=== PATIENT | male | born 1955 | race Caucasian/White ===

== ENCOUNTER 2023-07-28 17:25 | Day surgery (SDC) | payer MEDICARE, SELFPAY ==
[2023-07-28 15:29] VITALS: BP 154/81
--- NOTE | 2023-07-28 15:58 | ED.GENMED ---
History of Present Illness
General
Chief Complaint: Foreign Body Ingestion
Source: patient and spouse
Exam Limitations: none
Time Seen by Provider: 07/28/23 15:41
Nursing documentation reviewed up to this point in time: agreed with
Travel History
Have you had any contact with someone who has COVID-19?: No
Do you have any symptoms of coronavirus? Fever > 100 degrees, chills, cough, shortness of breath, sore throat, loss of taste or smell, muscle aches, or headache?: No
History of Present Illness
History of Present Illness:
68-year-old male with past medical history as documented presents for evaluation with concern for possible swallowed foreign body. Patient had his front tooth extracted and is planning to have an implant soon. He had a temporary tooth that clips
to the adjacent teeth as a placeholder. He says that he put it on this afternoon before lunch and then after lunch he realized that it was no longer in his mouth. He says that he looked all over but could not find it anywhere and he is concerned
that he swallowed it while he was eating lunch. Came to the emergency room for assessment. He has no complaints�no odynophagia/dysphagia, nausea, vomiting, abdominal pain, chest pain or any other issues. He says he did not have any coughing or
breathing difficulties to suggest aspiration.
Past History
Past History
ED Past Medical History: HTN, Hypercholesterolemia, NIDDM and Other (Seasonal allergies, fatty liver with mildly elevated LFTs.)
ED Past Surgical History: Appendectomy and Cholecystectomy
Social History
Tobacco: Non-smoker
Alcohol: Occasional
Drug: None
Personal:
Living: with family
Employment: Employed
Family History
Family History: Other (Noncontributory)
Review of Systems
Review of Systems
All Other Systems: ROS reviewed and negative except as documented in HPI and ROS
EENT: Reports other (Denies odynophagia or dysphagia)
Respiratory: Denies cough or trouble breathing
Cardiac: Denies chest pain
ABD/GI: Denies abdominal pain, nausea or vomiting
Phy Exam
Physical Exam
Physical Exam:
General: Awake, alert, oriented x3; no acute distress
Head: Normocephalic, atraumatic
Eyes: Conjunctiva normal
Throat: Airway intact, handling secretions, no foreign body noted in the upper airway
Neck: Trachea midline
Lungs: Clear to auscultation bilaterally, no wheezing, rales, rhonchi
Heart: Regular rate
Abd: Soft, non distended, nontender
Neuro: No gross deficits
Skin: no rash
Extremities: Moving all extremities equally
Scores
Heart Failure Risk
Heart Failure Risk Score: Not Applicable
Heart Score for Chest Pain Patients
STEMI patient?: Not applicable
Withdrawal Assessment of Alcohol
Withdrawal Assessment Completed?: Not applicable
Course
Orders/Labs/Results
Orders:
Orders
07/28/23 15:49
CR Obstruct Series W/pa Chest Urgent
Comment:
Reason For Exam: eval for swallowed FB
Vital Signs
Initial and Last Documented VS:
Initial Vital Signs
Temp Pulse Resp BP Pulse Ox
36.7 C 88 18 154/81 94
07/28/23 15:29 07/28/23 15:29 07/28/23 15:29 07/28/23 15:29 07/28/23 15:29
Last Documented Vital Signs
Temp Pulse Resp BP Pulse Ox
36.7 C 88 18 154/81 94
07/28/23 15:29 07/28/23 15:29 07/28/23 15:29 07/28/23 15:29 07/28/23 15:29
MDM/Problems Addressed
Differential Diagnosis Includes:
Swallowed foreign body
MDM/Problems Addressed:
68-year-old male with history as above presents for evaluation with concern for a swallowed foreign body. He had a temporary tooth in place awaiting implant�had it in before lunch and then after lunch noted it was no longer in his mouth believes he
may have swallowed it. This temporary tooth does have some clips on the side that adhered to the adjacent teeth�he says that the edges are not pointed but they do stick out slightly. He has no physical complaints at this point in time. Will check
x-ray of the chest and abdomen to evaluate location.
X-ray reviewed question whether there is a foreign body in the stomach and the epigastric region. Reviewed with patient and he says that the shape appears consistent with his temporary tooth. Discussed case with GI and after reviewing x-ray and
speak with patient ultimately will plan to take to GI lab for endoscopy.
*Radiology
Radiology exam reviewed: preliminary read by ED provider and radiology read reviewed
*Pulse Oximetry
Patient hypoxic: no
*Critical Care Note
Total Time (30-74mins, 75-104mins- exclusive of procedures): Not Applicable
Data Reviewed
Source: patient and spouse
Patient Management
Discussion with other providers: Resident Director (Discussed with gastroenterology)
ED Attending Note
-
Portions of this chart may have been created with voice recognition software.� Occasional wrong word or��sound alike� substitutions may have occurred due to the inherent limitations of voice recognition software.
Discharge Plan
Departure
Patient Disposition: GI LAB
Date of Disposition: 07/28/23
Time of Disposition: 17:09
Admit to doctor: Valdez
Presentation/result/management discussed w/ accepting MD/DO: GI
Discharge Problem:
Foreign body, swallowed
Prescriptions:
No Action
loratadine 10 MG tablet
10 mg PO DAILY
cholecalciferol (vitamin D3) 2,000 UNITS tablet
2,000 unit PO DAILY
atorvastatin 10 MG tablet
20 mg PO DAILY
losartan 25 MG tablet
50 mg PO DAILY
metformin 500 MG tablet extended release 24 hr
500 mg PO DAILY
ascorbic acid (vitamin C) [Vitamin C] 500 MG tablet
500 mg PO DAILY
aspirin 81 mg Tablet,Delayed Release (Dr/Ec)
81 mg PO DAILY
Multivitamin 50 Plus Tablet
1 tab PO DAILY
acetaminophen 325 MG tablet
650 mg PO Q4HPRN PRN (Reason: headache)
gabapentin 100 mg capsule
100 mg PO TID Qty: 90 0RF
Referrals:
Sarahi Lion MD [Family Provider] -
Interventions
Interventions:
*Risk Screen - Suicide Last Done: 07/28/23 15:29
*General Assessment Last Done: 07/28/23 15:29
KT-Olgwmu-Drpuarslvs Assessment Last Done: 07/28/23 16:58
ED- Pulmonary Assessment Last Done: 07/28/23 16:58
Discharge Date and Time
Print Language: LIBYAN
[2023-07-28 16:24] VITALS: BMI 43.5
[2023-07-28 18:28] VITALS: BP 110/63; BP 154/81
[2023-07-28 18:32] LABS: Glucose - Point of Care 104 mg/dl (70-99)
[2023-07-28 18:43] VITALS: BP 127/71
[2023-07-28 19:00] VITALS: BP 116/66
[2023-07-28 19:01] VITALS: BP 116/66
[2023-07-28 19:18] VITALS: BP 123/73
--- NOTE | 2023-07-28 19:26 | SUR.PHASEI ---
patient accepted for phase 2 - starting in pacu. comfortable, other than productive cough for thick clear mucous.
== END 2023-07-28 19:23 | disposition home or self-care (01) ==
LOC: GI 17:25
PROVIDERS: EMERGENCY PHYSICIAN Emergency Medicine; FAMILY PHYSICIAN Internal Medicine
DX: T18.2XXA Foreign body in stomach, initial encounter (principal); W44.9XXA Unspecified foreign body entering into or through a natural orifice, initial encounter; K20.90 Esophagitis, unspecified without bleeding; K31.89 Other diseases of stomach and duodenum
CPT/HCPCS: 43247; 74022; 82962; 99284

== ENCOUNTER → 2024-01-12 08:43 | Outpatient (REF) | payer MEDICARE, SELFPAY ==
[2024-01-12 11:30] LABS: Urine Albumin Negative (Neg - Trace); Urine Bilirubin Negative (Negative); Urine Character Clear (Clear); Urine Color Yellow; Urine Glucose Negative (Negative); Urine Ketone Negative (Negative); Urine Leukocyte Negative (Negative); Urine Nitrite Negative (Negative); Urine Occult Blood Negative (Negative); Urine Specific Gravity 1.025 (<1.030); Urine Urobilinogen Negative (Neg - 1+)
[2024-01-12 11:31] LABS: % Basophils 1.5 % (0-2); % Eosinophils 4.1 % (0-6); % Immature Granulocytes 0.2 % (0-0.5); % Lymphocytes 36.5 % (20.5-51.1); % Monocytes 8.6 % (1.7-9.3); % Neutrophils 49.1 % (42.2-75.2); Absolute Basophils 0.1 10^3/uL (0-0.2); Absolute Eosinophils 0.3 10^3/uL (0-0.7); Absolute Lymphocytes 2.4 10^3/uL (1.2-3.4); Absolute Monocytes 0.6 10^3/uL (0.1-0.6); Absolute Neutrophils 3.2 10^3/uL (1.4-6.5); Hematocrit 40.2 % (39.0-52.0); Hemoglobin 14.3 g/dL (13.0-18.0); Mean Corp Hgb Conc. 35.6 g/dL (33.0-37.0); Mean Corpuscular Hgb 31.9 pg (27.0-31.0); Mean Corpuscular Volume 89.7 fL (80.0-94.0); Mean Platelet Volume 11.2 fL (7.4-10.4); Nucleated Red Blood Cells % 0 % (-); Platelet Count 178 10^3/uL (130-400); Red Blood Cell Count 4.48 10^6/uL (4.70-6.10); Red Cell Dist. Width 12.5 % (11.5-14.5); White Blood Cell Count 6.5 10^3/uL (4.8-10.8)
[2024-01-12 11:55] LABS: ALT (SGPT) 49 U/L (0-50); AST (SGOT) 44 U/L (17-59); Albumin 4.5 g/dl (3.5-5.0); Alkaline Phosphatase 49 U/L (38-126); Blood Urea Nitrogen 24 mg/dl (9-20); Calcium 9.6 mg/dl (8.4-10.2); Carbon Dioxide 25 mmol/L (22-30); Chloride 101 mmol/L (98-107); Glucose 100 mg/dl (70-99); HDL Cholesterol 38 mg/dl; LDL Cholesterol, Calculated 35 mg/dl; Potassium 4.2 mmol/L (3.5-5.1); Sodium 139 mmol/L (135-145); Total Bilirubin 1.3 mg/dl (0.2-1.3); Total Cholesterol 118 mg/dl (50-199); Total Protein 7.2 g/dl (6.3-8.2); Triglyceride 226 mg/dl (10-149); Very Low Density Lipoprotein 45 mg/dl (0-30); eGFR > 60.00
[2024-01-12 12:21] LABS: Glycohemoglobin (HgbA1c) 5.5 % (4.0-5.6)
[2024-01-12 12:23] LABS: TSH Reflex To Free T4 3.82 uIU/ml (0.47-4.68)
[2024-01-12 13:24] LABS: Microalbumin, Random Urine 0.8 mg/dl (0.6-1.7); Microalbumin/creatinine Ratio 5.7 mg/g
[2024-01-14 11:36] LABS: PSA Total 0.6 ng/mL (0.0-4.0)
== END ==
LOC: HWLAB 08:43
PROVIDERS: ATTENDING PHYSICIAN Family Medicine
DX: E11.69 Type 2 diabetes mellitus with other specified complication (principal); I10 Essential (primary) hypertension; E78.2 Mixed hyperlipidemia; E66.01 Morbid (severe) obesity due to excess calories; K76.0 Fatty (change of) liver, not elsewhere classified; Z00.01 Encounter for general adult medical examination with abnormal findings
CPT/HCPCS: 36415; 80053; 80061; 81003; 82043; 82570; 83036; 84153; 84154; 84443; 85025

== ENCOUNTER → 2024-04-06 14:47 | Outpatient (REF) | payer MEDICARE, SELFPAY | LOC: HWRCS 14:47 | PROVIDERS: ATTENDING PHYSICIAN Internal Medicine Cardiovascular Disease; FAMILY PHYSICIAN Family Medicine | DX: R01.1 Cardiac murmur, unspecified (principal) | CPT/HCPCS: 93306 ==

== ENCOUNTER → 2024-04-10 07:37 | Outpatient (REF) | payer MEDICARE, SELFPAY | LOC: HWRCS 07:37 | PROVIDERS: ATTENDING PHYSICIAN Internal Medicine Cardiovascular Disease; FAMILY PHYSICIAN Family Medicine | DX: R06.02 Shortness of breath (principal) | CPT/HCPCS: 78452; 93017; A9500; J2785 ==

== ENCOUNTER → 2024-08-14 06:34 | Outpatient (REF) | payer MEDICARE, SELFPAY ==
[2024-08-14 09:40] LABS: ALT (SGPT) 48 U/L (0-50); AST (SGOT) 38 U/L (17-59); Albumin 4.5 g/dl (3.5-5.0); Alkaline Phosphatase 52 U/L (38-126); Blood Urea Nitrogen 19 mg/dl (9-20); Calcium 9.4 mg/dl (8.4-10.2); Carbon Dioxide 23 mmol/L (22-30); Chloride 107 mmol/L (98-107); Glucose 112 mg/dl (70-99); HDL Cholesterol 31 mg/dl; LDL Cholesterol, Calculated 11 mg/dl; Potassium 4.2 mmol/L (3.5-5.1); Sodium 140 mmol/L (135-145); Total Bilirubin 1.2 mg/dl (0.2-1.3); Total Cholesterol 111 mg/dl (50-199); Total Protein 7.1 g/dl (6.3-8.2); Triglyceride 349 mg/dl (10-149); Very Low Density Lipoprotein 69 mg/dl (0-30); eGFR > 60.00
[2024-08-14 10:37] LABS: Glycohemoglobin (HgbA1c) 5.6 % (4.0-5.6)
[2024-08-14 11:20] LABS: Microalbumin, Random Urine 0.9 mg/dl (0.6-1.7); Microalbumin/creatinine Ratio 7.2 mg/g
== END ==
LOC: HWLAB 06:34
PROVIDERS: ATTENDING PHYSICIAN Family Medicine
DX: E11.69 Type 2 diabetes mellitus with other specified complication (principal); I10 Essential (primary) hypertension; E78.2 Mixed hyperlipidemia; K76.0 Fatty (change of) liver, not elsewhere classified
CPT/HCPCS: 36415; 80053; 80061; 82043; 82570; 83036

== ENCOUNTER 2024-11-27 06:26 | Day surgery (SDC) | payer MEDICARE, SELFPAY ==
[2024-11-27 08:10] LABS: Glucose - Point of Care 110 mg/dl (70-99)
== END 2024-11-27 10:55 | disposition home or self-care (01) ==
LOC: GI 06:26
PROVIDERS: ATTENDING PHYSICIAN Internal Medicine Gastroenterology
DX: Z12.11 Encounter for screening for malignant neoplasm of colon (principal); Z80.0 Family history of malignant neoplasm of digestive organs; D12.2 Benign neoplasm of ascending colon; D12.3 Benign neoplasm of transverse colon; K64.8 Other hemorrhoids; K22.89 Other specified disease of esophagus; K31.89 Other diseases of stomach and duodenum; K21.9 Gastro-esophageal reflux disease without esophagitis; K22.70 Barrett's esophagus without dysplasia
CPT/HCPCS: 45385; 45380; 43239; 82962; 88305

== ENCOUNTER 2025-02-07 07:29 | Emergency (ER) | payer MEDICARE, SELFPAY ==
[2025-02-07 07:43] VITALS: BP 139/83
--- NOTE | 2025-02-07 08:54 | ED.GENMED ---
History of Present Illness
General
Chief Complaint: Skin Problem
Time Seen by Provider: 02/07/25 08:54
History of Present Illness
History of Present Illness:
FOCUSED PAST MEDICAL HISTORY
- High blood pressure, diabetes, basal cell carcinoma
REVIEW OF OLD RECORDS
- Patient had screening colonoscopy November 2024
Note:
CHIEF COMPLAINT(S)
Right great toe pain and possible infection following ingrown toenail procedure.
HISTORY OF PRESENT ILLNESS
The patient is a 69-year-old male with a history of type 2 diabetes who presents with significant pain and possible infection in the right great toe following a recent intervention for an ingrown toenail. The initial ingrown toenail procedure was
performed a few weeks ago, with a follow-up visit occurring yesterday due to recurrent symptoms. During the follow-up, Dr. Gutiérrez conducted an examination, cleaned the area, and prescribed cephalexin due to concerns of infection. Notably, the patient
reported unprecedented pain following this procedure, which interfered with his sleep, describing the pain as burning. The treating physician applied silver nitrate to the area, which the patient suspects may be contributing to the discomfort, given
this was the first time silver nitrate was used in his treatment. The patient reports no new pus formation today but did observe some pus prior to the follow-up appointment. There is minimal erythema and tenderness over the area. The patient denies
fevers. The plan includes obtaining basic blood work and possibly adding ciprofloxacin to the current antibiotic regimen if warranted by further diagnostics.
PAST MEDICAL AND SURGICAL HISTORY
Type 2 diabetes mellitus.
CHRONIC MEDICAL CONDITIONS SIGNIFICANTLY AFFECTING CARE
Type 2 diabetes mellitus.
PHYSICAL EXAM
General: Alert, no acute distress.
Skin: Warm, dry.
Head: Normocephalic, atraumatic.
Neck: Supple, trachea midline.
Eye, Ears, Nose, Mouth, and Throat: Oral mucosa moist.
Cardiovascular: Normal peripheral perfusion, No edema.
Respiratory: Respirations are non-labored.
Gastrointestinal: Abdomen nondistended.
Back: Normal range of motion, Normal alignment.
Musculoskeletal: Normal ROM, normal strength.
Neurological: Alert and oriented to person, place, time, and situation, No focal neurological deficit observed.
Psychiatric: Cooperative, appropriate mood & affect.
Right Great Toe: There has been debridement of soft tissue in nail and small portion of nail. Minimal erythema, very mild tenderness. No significant streaking or extension to midfoot.
PROBLEM LIST
Acute:
- Right great toe pain and possible infection.
Chronic:
- Type 2 diabetes mellitus.
PLAN
- Conduct basic blood work to assess for any underlying infection or complications.
- Obtain a wound culture to identify potential pathogens affecting the area.
- Consider the addition of ciprofloxacin for increased antibiotic coverage, particularly for pseudomonas, if necessary following diagnostics.
- Discuss potential reaction to silver nitrate given the history of heightened discomfort this time around.
- Consider soaking the affected toe to alleviate discomfort and promote healing.
DIFFERENTIAL DIAGNOSIS
The Differential Diagnosis includes, in no particular order and is not limited to:
- Localized infection or cellulitis of the great toe
- Reaction to silver nitrate used in the procedure
- Diabetic foot infection
- Erythrasma
- Paronychia
- Peripheral neuropathy-related discomfort
- Gout flare
- Osteomyelitis of the toe
- Pseudomonal infection
- Contact dermatitis
Disposition:
SUMMARY OF ENCOUNTER
The patient, a 69-year-old male with a history of type 2 diabetes, presented with significant pain in the right great toe following an ingrown toenail procedure. The pain is described as unprecedented and burning in nature, with a suspicion that the
newly introduced silver nitrate may be contributing to the discomfort. Previous blood work indicated normal white blood cell counts and well-controlled blood sugar levels. The physician considered the possibility of a different infection, such as a
pseudomonal infection, and decided to prescribe ciprofloxacin. The patient expressed significant pain, which was inadequately managed by previously taken medication. A decision was made to prescribe a short course of a narcotic, potentially Percocet
(oxycodone-acetaminophen), to address the patients acute pain. It was noted that [id number] creams were not considered suitable due to the presence of an open wound.
DISPOSITION
Discharge.
ASSESSMENT
The patient is experiencing significant post-procedural toe pain possibly due to a reaction to silver nitrate or infection, with diabetes as a complicating factor.
PLAN
1. Prescribe a short course of ciprofloxacin to cover potential infection including pseudomonal infection.
2. Provide a prescription for a short course of narcotic medication like Percocet to manage acute right great toe pain.
3. Advise the patient to consider analgesic options at home and avoid applying creams to open wounds.
MEDICATION RECONCILIATION
1. Ciprofloxacin prescribed.
2. Percocet (oxycodone-acetaminophen) prescription was provided for short-term pain management.
MEDICAL DECISION MAKING
- Number and Complexity of Problems Addressed: Chronic conditions affecting care [Type 2 diabetes mellitus]. Differential Diagnosis includes:
- Localized infection or cellulitis of the great toe
- Reaction to silver nitrate
- Diabetic foot infection
- Erythrasma
- Paronychia
- Peripheral neuropathy-related discomfort
- Gout flare
- Osteomyelitis of the toe
- Pseudomonal infection
- Contact dermatitis
- Data:
- Category 1: No additional tests ordered; blood work and its normal results reviewed.
- Category 3: Consideration of medication management reflecting the discussion on adding ciprofloxacin for increased antibiotic coverage due to potential pseudomonal infection.
- Risk:
- Prescription medication was prescribed (ciprofloxacin and Percocet). Decisions regarding prescription drug management reflect a higher risk associated with opioid use for pain management in this patient with chronic conditions.
DIAGNOSIS
- Ingrown toenail with post-procedural pain (L60.0)
- Suspected reaction to silver nitrate or infection in diabetic patient (Z79.891 for long-term use of medication leading to infection risk).
LABS
- White count and chemistries unremarkable
UPDATE
- Pain after debridement at the right great toe
- He is a diabetic, will add Cipro to the Keflex that he is already on
- Vital signs are not consistent with sepsis and his white count is normal
- Added Percocet for pain control
Past History
Past History
ED Past Medical History: HTN, Hypercholesterolemia, NIDDM and Other (Seasonal allergies, fatty liver with mildly elevated LFTs.)
ED Past Surgical History: Appendectomy and Cholecystectomy
Social History
Tobacco: Non-smoker
Alcohol: Occasional
Drug: None
Personal:
Living: with family
Employment: Employed
Family History
Family History: Other (Noncontributory)
Phy Exam
Physical Exam
Physical Exam:
See HPI
Course
Orders/Labs/Results
Orders:
Orders
02/07/25 09:12
Basic Metabolic Panel Urgent
Complete Blood Count/With Diff Urgent
Wound Culture [Wound/Abscess/Other Culture] Urgent
RAMSEY Source: Toe
Specimen Description:
Date Specimen was Collected: 02/07/25
Time Specimen was Collected: 09:10
Abnormal Lab Results
02/07/25
09:12
RBC 4.47 L 10^6/uL
(4.70-6.10)
MCH 31.1 H pg
(27.0-31.0)
MPV 10.6 H fL
(7.4-10.4)
Absolute Monos (auto) 0.7 H 10^3/uL
(0.1-0.6)
02/07/25 09:12
02/07/25 09:12
Vital Signs
Initial and Last Documented VS:
Initial Vital Signs
Temp Pulse Resp BP Pulse Ox
36.6 C 75 20 139/83 95
02/07/25 07:43 02/07/25 07:43 02/07/25 07:43 02/07/25 07:43 02/07/25 07:43
Last Documented Vital Signs
Temp Pulse Resp BP Pulse Ox
36.6 C 75 20 139/83 95
02/07/25 07:43 02/07/25 07:43 02/07/25 07:43 02/07/25 07:43 02/07/25 08:56
*Pulse Oximetry
SaO2: 95
Oxygen Mode of Delivery: Room air
Patient hypoxic: no
*Critical Care Note
Total Time (30-74mins, 75-104mins- exclusive of procedures): Not Applicable
ED Attending Note
-
Portions of this chart may have been created with voice recognition software.� Occasional wrong word or��sound alike� substitutions may have occurred due to the inherent limitations of voice recognition software.
Discharge Plan
Departure
Patient Disposition: Home (Routine Discharge)
Date of Disposition: 02/07/25
Time of Disposition: 09:57
Patient with high blood pressure during this ER visit?: Yes
Discharge Problem:
Great toe pain
Instructions: BLOOD PRESSURE
Prescriptions:
New
oxycodone-acetaminophen [Percocet] 5-325 mg tablet
1 - 2 tab PO Q8H PRN (Reason: Pain) Qty: 14 0RF
ciprofloxacin HCl [Cipro] 500 mg tablet
500 mg PO Q12H Qty: 14 0RF
No Action
loratadine 10 MG tablet
10 mg PO DAILY
cholecalciferol (vitamin D3) 2,000 UNITS tablet
2,000 unit PO DAILY
atorvastatin 10 MG tablet
20 mg PO DAILY
losartan 25 MG tablet
50 mg PO DAILY
metformin 500 MG tablet extended release 24 hr
500 mg PO DAILY
ascorbic acid (vitamin C) [Vitamin C] 500 MG tablet
500 mg PO DAILY
aspirin 81 mg Tablet,Delayed Release (Dr/Ec)
81 mg PO DAILY
Multivitamin 50 Plus Tablet
1 tab PO DAILY
acetaminophen 325 MG tablet
650 mg PO Q4HPRN PRN (Reason: headache)
gabapentin 100 mg capsule
100 mg PO TID Qty: 90 0RF
Referrals:
Bryn Wise CRNP [Family Provider]
Merlene Huitron DPM [Active, Podiatry]
Activity Restrictions/Additional Instructions:
I sent a prescription for Percocet to [facility] pharmacy. Return if worse or other concerns. Follow-up with your oceanology teacher. I also recommend he take something like MiraLAX to prevent constipation if you take the Percocet.
Interventions
Interventions:
*General Assessment Last Done: 02/07/25 07:43
*Neglect/Abuse Screening Last Done: 02/07/25 07:43
*Risk Screen - Suicide (C-SSRS) Last Done: 02/07/25 07:43
Discharge Date and Time
Print Language: CITIZEN [place]
[2025-02-07 09:24] LABS: Hematocrit 39.0 % (39.0-52.0); Hemoglobin 13.9 g/dL (13.0-18.0); Mean Corp Hgb Conc. 35.6 g/dL (33.0-37.0); Mean Corpuscular Volume 87.2 fL (80.0-94.0); Nucleated Red Blood Cells % 0 % (-); Platelet Count 187 10^3/uL (130-400); Red Cell Dist. Width 12.5 % (11.5-14.5)
[2025-02-07 09:46] LABS: Blood Urea Nitrogen 20 mg/dl (9-20); Calcium 9.2 mg/dl (8.4-10.2); Carbon Dioxide 23 mmol/L (22-30); Chloride 104 mmol/L (98-107); Glucose 97 mg/dl (70-99); Potassium 4.2 mmol/L (3.5-5.1); Sodium 136 mmol/L (135-145); eGFR > 60.00
== END 2025-02-07 10:30 | disposition home or self-care (01) ==
LOC: EMR 07:29
PROVIDERS: EMERGENCY PHYSICIAN Emergency Medicine
DX: M79.674 Pain in right toe(s) (principal); E11.9 Type 2 diabetes mellitus without complications; E78.00 Pure hypercholesterolemia, unspecified; I10 Essential (primary) hypertension; Z85.828 Personal history of other malignant neoplasm of skin; Z90.49 Acquired absence of other specified parts of digestive tract
CPT/HCPCS: 99283; 80048; 85025; 87070; 87205